=== PATIENT | female | born 1995 | race Caucasian/White ===

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

== ENCOUNTER 2017-02-19 18:13 | Emergency (ER) | payer OTHER ==
[~2017-02-19] VITALS: Ht 162.6 cm; Wt 77.1 kg
[~2017-02-19 18:13] MED LIST changes: +PRED20TA PO; +PROAIR HFA8.5 GM INH
[2017-02-19 18:40] VITALS: BP 118/57
[2017-02-19 19:16] LABS: BILIRUBIN,URINE NEGATIVE (NEG); GLUCOSE,URINE NEGATIVE (NEG); NITRITE,URINE NEGATIVE (NEG); PH,URINE 6.5; PROTEIN,URINE NEGATIVE (NEG-TRACE); UROBILINOGEN,URINE 0.2 mg/dL (0.2 mg/dL)
--- NOTE | 2017-02-19 19:25 | PHYS DOC ---
Past Medical History Past Medical History: Bipolar Additional Past Medical Histor: ADHD Past Surgical History: Tonsillectomy Alcohol Use: Occasionally Drug Use: Marijuana Adult General Chief Complaint Chief Complaint: VAGINAL PROBLEM HPI HPI Patient is a 21 year old female presents emergency department stating that she' s been having dark brown vaginal discharge. She states that she has sexually active that she has approximately 40 sexual partners. 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 Patient denies any abdominal pain nausea vomiting. She does state that she has a little bit discomfort with urination. Denies any back pain or discomfort. Review of Systems Review of Systems Constitutional: Denies fever or chills [] Eyes: Denies change in visual acuity, redness, or eye pain [] HENT: Denies nasal congestion or sore throat [] Respiratory: Denies cough or shortness of breath [] Cardiovascular: No additional information not addressed in HPI [] GI: Denies abdominal pain, nausea, vomiting, bloody stools or diarrhea [] : Denies dysuria or hematuria [] Musculoskeletal: Denies back pain or joint pain [] Integument: Denies rash or skin lesions [] Neurologic: Denies headache, focal weakness or sensory changes [] Endocrine: Denies polyuria or polydipsia [] Current Medications Current Medications Current Medications Medications (Trade) Dose Ordered Sig/María Elena Start Time Stop Time Status Last Admin Dose Admin Azithromycin (Zithromax) 1,000 mg 1X ONCE 02/19/17 19:45 02/19/17 19:46 DC Ceftriaxone Sodium (Rocephin Im) 250 mg 1X ONCE 02/19/17 19:45 02/19/17 19:46 DC Metronidazole (Flagyl) 2,000 mg 1X ONCE 02/19/17 19:45 02/19/17 19:46 DC Allergies Allergies Allergies Coded Allergies Type Severity Reaction Last Updated Verified Latex, Natural Rubber Allergy Unknown hives 08/28/16 Yes Physical Exam Physical Exam Constitutional: Well developed, well nourished, no acute distress, non-toxic appearance. [] HENT: Normocephalic, atraumatic, bilateral external ears normal, oropharynx moist, no oral exudates, nose normal. [] Eyes: PERRLA, EOMI, conjunctiva normal, no discharge. [] Neck: Normal range of motion, no tenderness, supple, no stridor. [] Cardiovascular:Heart rate regular rhythm, no murmur [] Lungs & Thorax: Bilateral breath sounds clear to auscultation [] Abdomen: Bowel sounds normal, soft, no tenderness, no masses, no pulsatile masses. [] Skin: Warm, dry, no erythema, no rash. [] Back: No tenderness Extremities: No tenderness, no cyanosis, no clubbing, ROM intact, no edema. [] Neurologic: Alert and oriented X 3, normal motor function, normal sensory function, no focal deficits noted. [] Psychologic: Affect normal, judgement normal, mood normal. [] Vaginal exam: speculum exam with dark brown vaginal discharge noted. Manual exam with no adnexal tenderness noted, +CMT Current Patient Data Lab Values Laboratory Tests Test 02/19/17 18:48 Urine Collection Type Unknown Urine Color Yellow Urine Clarity Cloudy Urine pH 6.5 Urine Specific Cedar 1.020 Urine Protein Negative mg/dL (NEG-TRACE) Urine Glucose (UA) Negative mg/dL (NEG) Urine Ketones (Stick) Negative mg/dL (NEG) Urine Blood Large (NEG) Urine Nitrite Negative (NEG) Urine Bilirubin Negative (NEG) Urine Urobilinogen Dipstick 0.2 mg/dL (0.2 mg/dL) Urine Leukocyte Esterase Moderate (NEG) Urine RBC 1-2 /HPF (0-2) Urine WBC 5-10 /HPF (0-4) Urine Squamous Epithelial Cells Many /LPF Urine Bacteria Few /HPF (0-FEW) Urine Mucus Slight /LPF Urine Yeast Present /HPF Microbiology 02/19/17 Wet Prep - Final, Complete EKG EKG [] Radiology/Procedures Radiology/Procedures [] Course & Med Decision Making Course & Med Decision Making Pertinent Labs and Imaging studies reviewed. (See chart for details) Patient was positive for urinary tract infection, yeast infection bacterial vaginosis and PID. Patient will be placed on Diflucan, Macrobid, and doxycycline. She was instructed to avoid sexual intercourse for the next 2 weeks that she was also provided treatment for STDs with Rocephin and Zithromax and Flagyl. Patient was instructed to drink plenty of fluids such as water and cranberry juice avoid cranberry juice cocktail carbonate beverages citrus fruits and alcohol seizure considered irritants to the bladder. Patient will be discharged home in stable condition signs symptoms to return back to emergency department been provided. [] Dragon Disclaimer Dragon Disclaimer This electronic medical record was generated, in whole or in part, using a voice recognition dictation system. Departure Departure Impression: Primary Impression: Bacterial vaginosis Additional Impressions: Urinary tract infection Yeast infection PID (acute pelvic inflammatory disease) Disposition: 01 HOME, SELF-CARE Condition: STABLE Referrals: NO PCP (PCP) Patient Instructions: Bacterial Vaginosis, Klej-pj-Somc, Candidal Vulvovaginitis, Qyqk-st-Bxue, Pelvic Inflammatory Disease, Hbxu-fe-Asfo, Urinary Tract Infection, Mtba-mq-Uqrg Additional Instructions: Activity as tolerated. Medications as prescribed. Drink plenty of fluids such as water and cranberry juice. Avoid cranberry juice cocktail, carbonated beverages, citrus fruits and alcohol sees her considered irritants to the bladder. Avoid sexual intercourse for the next 2 weeks. Follow-up to primary care physician in the next 7-10 days. Return back to emergency prior signs symptoms of become worse. Scripts Fluconazole (DIFLUCAN) 150 Mg Tablet 1 TAB PO ONCE, #1 TAB 1 Refill Take 1 tablet today and may repeat in 7 days Prov: PLACIDO ONEILL APRN 02/19/17 Nitrofurantoin Monohyd/M-Cryst (MACROBID 100 MG CAPSULE) 100 Mg Capsule 1 CAP PO BID, #14 CAP Prov: PLACIDO ONEILL APRN 02/19/17 Metronidazole (FLAGYL) 500 Mg Tablet 1 TAB PO BID, #14 TAB Prov: PLACIDO ONEILL APRN 02/19/17 Doxycycline Hyclate (DOXYCYCLINE HYCLATE) 100 Mg Capsule 1 CAP PO BID, #28 CAP Prov: PLACIDO ONEILL APRN 02/19/17 Problem Qualifiers PLACIDO ONEILL APRN February 19, 2017 19:25
[2017-02-19 19:40] LABS: BACTERIA,URINE FEW /HPF (0-FEW); SQUAMOUS EPITHELIAL CELL,UR MANY /LPF; YEAST,URINE PRESENT /HPF
[2017-02-19] MEDS ORDERED: cefTRIAXone IM 250 MG VIAL IM ONE (19:45)
[2017-02-19] MEDS ORDERED: AZITHROMYCIN 250 MG TABLET. PO ONE (19:45)
[2017-02-19] MEDS ORDERED: metroNIDAZOLE 500 MG TABLET PO ONE (19:45)
[2017-02-19] MEDS ORDERED: DOXY100C2 PO (19:53)
[2017-02-19] MEDS ORDERED: METR500T PO (19:53)
[2017-02-19] MEDS ORDERED: FLUC150T PO (19:53)
[2017-02-19] MEDS ORDERED: NITR100C62 PO (19:53)
== END 2017-02-19 20:19 | disposition home or self-care (01) ==
LOC: ER 19:32
DX: B37.3 Candidiasis of vulva and vagina (principal); N39.0 Urinary tract infection, site not specified; N73.9 Female pelvic inflammatory disease, unspecified; F90.9 Attention-deficit hyperactivity disorder, unspecified type; F31.9 Bipolar disorder, unspecified; F12.10 Cannabis abuse, uncomplicated; Z91.040 Latex allergy status
CPT/HCPCS: 81001; 81025; 87491; 87591; 96372; 99284; J0696; Q0111; Q0144

== ENCOUNTER 2017-10-25 11:29 | Emergency (ER) | payer OTHER ==
[2017-10-25 11:42] LABS: URINE HCG POC HCG POSITIVE (Negative)
[2017-10-25 11:56] LABS: BILIRUBIN,URINE NEGATIVE (NEG); COLOR,URINE YELLOW; GLUCOSE,URINE NEGATIVE (NEG); NITRITE,URINE NEGATIVE (NEG); PROTEIN,URINE NEGATIVE (NEG-TRACE); UROBILINOGEN,URINE 0.2 mg/dL (0.2 mg/dL)
[2017-10-25 12:08] LABS: ADD MAN DIFF? NO
[2017-10-25 12:21] LABS: ANION GAP 11 (6-14); BLOOD UREA NITROGEN 8 mg/dL (7-20); BUN/CREATININE RATIO 13 (6-20); CALCIUM 8.9 mg/dL (8.5-10.1); CARBON DIOXIDE 27 mmol/L (21-32); CHLORIDE 105 mmol/L (98-107); CREATININE 0.6 mg/dL (0.6-1.0); GFR 127.5; GLUCOSE 92 mg/dL (70-99); POTASSIUM 3.6 mmol/L (3.5-5.1); SODIUM 143 mmol/L (136-145)
[2017-10-25 12:23] LABS: AMORPHOUS SEDIMENT,UR PRESENT /HPF; BACTERIA,URINE MOD /HPF (0-FEW); CLARITY,URINE CLOUDY; RBC,URINE RARE /HPF (0-2); SQUAMOUS EPITHELIAL CELL,UR FEW /LPF; WBC,URINE OCC /HPF (0-4)
[2017-10-25 12:26] LABS: BASO % 1 % (0-3); EOS # 0.1 x10^3/uL (0.0-0.7); EOS % 1 % (0-3); HEMATOCRIT 39.8 % (36.0-47.0); HEMOGLOBIN 13.3 g/dL (12.0-15.5); LYMPH # 2.5 x10^3/uL (1.0-4.8); LYMPH % 29 % (24-48); MEAN CORPUSCULAR HEMOGLOBIN 29 pg (25-35); MEAN CORPUSCULAR HGB CONC 34 g/dL (31-37); MEAN CORPUSCULAR VOLUME 86 fL (79-100); MONO # 0.6 x10^3/uL (0.0-1.1); MONO % 7 % (0-9); NEUT # 5.3 x10^3uL (1.8-7.7); NEUT % 62 % (31-73); PLATELET COUNT 320 x10^3/uL (140-400); RED BLOOD COUNT 4.61 x10^6/uL (3.50-5.40); WHITE BLOOD COUNT 8.5 x10^3/uL (4.0-11.0)
[2017-10-25 12:27] LABS: ALBUMIN 3.4 g/dL (3.4-5.0); ALBUMIN/GLOBULIN RATIO 0.9 (1.0-1.7); ALK PHOS 84 U/L (46-116); ALT (SGPT) 18 U/L (14-59); AST (SGOT) 13 U/L (15-37); TOTAL BILIRUBIN 0.2 mg/dL (0.2-1.0); TOTAL PROTEIN 7.3 g/dL (6.4-8.2)
[2017-10-25 14:03] LABS: ANTIBODY SCREEN 1 1
== END 2017-10-25 14:13 | disposition home or self-care (01) ==
LOC: ER 11:29
DX: O20.0 Threatened abortion (principal); O23.40 Unspecified infection of urinary tract in pregnancy, unspecified trimester; Z3A.00 Weeks of gestation of pregnancy not specified; F90.9 Attention-deficit hyperactivity disorder, unspecified type; F31.9 Bipolar disorder, unspecified; F12.10 Cannabis abuse, uncomplicated; F14.10 Cocaine abuse, uncomplicated; F15.10 Other stimulant abuse, uncomplicated; Z91.040 Latex allergy status
CPT/HCPCS: 36415; 76801; 80053; 81001; 81025; 84702; 85025; 86850; 86900; 86901; 99285-25; J2791

== ENCOUNTER 2017-12-28 09:38 | Emergency (ER) | payer OTHER ==
[2017-12-28] MEDS: HYDROcodone/APAP 7.5/325MG 1 TAB TABLET PO (10:21)
[2017-12-28 10:23] LABS: ADD MAN DIFF? NO
[2017-12-28 10:30] LABS: BASO % 1 % (0-3); EOS # 0.1 x10^3/uL (0.0-0.7); EOS % 1 % (0-3); HEMATOCRIT 37.5 % (36.0-47.0); HEMOGLOBIN 12.6 g/dL (12.0-15.5); LYMPH # 2.1 x10^3/uL (1.0-4.8); LYMPH % 33 % (24-48); MEAN CORPUSCULAR HEMOGLOBIN 30 pg (25-35); MEAN CORPUSCULAR HGB CONC 34 g/dL (31-37); MEAN CORPUSCULAR VOLUME 88 fL (79-100); MONO # 0.5 x10^3/uL (0.0-1.1); MONO % 8 % (0-9); NEUT # 3.7 x10^3uL (1.8-7.7); NEUT % 58 % (31-73); PLATELET COUNT 193 x10^3/uL (140-400); RED BLOOD COUNT 4.25 x10^6/uL (3.50-5.40); RED CELL DISTRIBUTION WIDTH 15.2 % (11.5-14.5); WHITE BLOOD COUNT 6.5 x10^3/uL (4.0-11.0)
[2017-12-28 10:38] LABS: ANION GAP 8 (6-14); BLOOD UREA NITROGEN 4 mg/dL (7-20); BUN/CREATININE RATIO 8 (6-20); CARBON DIOXIDE 25 mmol/L (21-32); CHLORIDE 104 mmol/L (98-107); CREATININE 0.5 mg/dL (0.6-1.0); GFR 157.3; GLUCOSE 86 mg/dL (70-99); POTASSIUM 3.5 mmol/L (3.5-5.1); SODIUM 137 mmol/L (136-145)
[2017-12-28 10:44] LABS: ALBUMIN/GLOBULIN RATIO 0.7 (1.0-1.7); ALK PHOS 69 U/L (46-116); ALT (SGPT) 16 U/L (14-59); AST (SGOT) 7 U/L (15-37); TOTAL BILIRUBIN 0.2 mg/dL (0.2-1.0); TOTAL PROTEIN 7.2 g/dL (6.4-8.2)
[2017-12-28 12:12] LABS: BILIRUBIN,URINE NEGATIVE (NEG); CLARITY,URINE CLOUDY; COLOR,URINE YELLOW; GLUCOSE,URINE NEGATIVE (NEG); NITRITE,URINE NEGATIVE (NEG); PROTEIN,URINE NEGATIVE (NEG-TRACE); UROBILINOGEN,URINE 0.2 mg/dL (0.2 mg/dL)
[2017-12-28 12:38] LABS: AMORPHOUS SEDIMENT,UR PRESENT /HPF; BACTERIA,URINE 0 /HPF (0-FEW); SQUAMOUS EPITHELIAL CELL,UR MANY /LPF
[2017-12-28] MEDS: ONDANSETRON ODT 4 MG TAB.RAPDIS. PO (12:56)
[2017-12-29 13:25] LABS: CHLAMYDIA PROBE Positive (Negative); GC PROBE Positive (Negative)
== END 2017-12-28 13:38 | disposition home or self-care (01) ==
LOC: ER 09:38
DX: O23.42 Unspecified infection of urinary tract in pregnancy, second trimester (principal); O23.592 Infection of other part of genital tract in pregnancy, second trimester; B96.89 Other specified bacterial agents as the cause of diseases classified elsewhere; Z3A.14 14 weeks gestation of pregnancy; F31.9 Bipolar disorder, unspecified; F90.9 Attention-deficit hyperactivity disorder, unspecified type; F12.10 Cannabis abuse, uncomplicated; F14.10 Cocaine abuse, uncomplicated; F15.10 Other stimulant abuse, uncomplicated; Z91.040 Latex allergy status
CPT/HCPCS: 36415; 76805; 80053; 81001; 84702; 85025; 86850; 86900; 86901; 87086; 87491; 87591; 99285-25; Q0111; Q0162

== ENCOUNTER 2018-03-05 13:33 | Observation (INO) | payer OTHER | END 2018-03-05 16:16 | disposition home or self-care (01) | LOC: 3 SO LND 13:33 | DX: O26.892 Other specified pregnancy related conditions, second trimester (principal); R10.9 Unspecified abdominal pain; R10.2 Pelvic and perineal pain; Z3A.23 23 weeks gestation of pregnancy | CPT/HCPCS: G0378; G0379 ==

== ENCOUNTER 2019-10-29 14:31 | Emergency (ER) | payer OTHER ==
[~2019-10-29] VITALS: Ht 160 cm; Wt 79.4 kg
[~2019-10-29 14:31] MED LIST changes: +ALBU2.5V8 INH; +CEPH-264 PO; +DOXY100C2 PO; +FLUC150T PO; -PROAIR HFA8.5 GM INH
[2019-10-29 14:57] VITALS: BP 99/53
--- NOTE | 2019-10-29 15:07 | PHYS DOC ---
Past Medical History Past Medical History: Bipolar Additional Past Medical Histor: ADHD (TAL RODRIGUEZ APRN) Past Surgical History: Tonsillectomy (TAL RODRIGUEZ APRN) Alcohol Use: Sober Drug Use: Cocaine, Marijuana, Methamphetamine (TAL RODRIGUEZ APRN) Adult General Chief Complaint Chief Complaint: TEST [facility] Patient is a 24 year old female who presents with + test at home. The patient states that she took a test on Monday and then looked at it yesterday and states it was positive. The patient has been having vaginal bleeding that started today. The patient's last menstural period was September 21. Patient denies any other symptoms. Complete ROS were reviewed and found to be within normal limits, except as documented in the HPI (TAL RODRIGUEZ APRN) Allergies Allergies Allergies Coded Allergies Type Severity Reaction Last Updated Verified Latex, Natural Rubber Allergy Unknown hives 08/28/16 Yes (FRAN NICHOLAS MD) Physical Exam Physical Exam Constitutional: Well developed, well nourished, no acute distress, non-toxic appearance. [] HENT: Normocephalic, atraumatic, bilateral external ears normal, oropharynx moist, no oral exudates, nose normal. [] Eyes: PERRLA, EOMI, conjunctiva normal, no discharge. [] Abdomen: Bowel sounds normal, soft, no tenderness, no masses, no pulsatile masses. [] Skin: Warm, dry, no erythema, no rash. [] Neurologic: Alert and oriented X 3, normal motor function, normal sensory function, no focal deficits noted. [] Psychologic: Affect normal, judgement normal, mood normal. [] (TAL RODRIGUEZ APRN) Current Patient Data Vital Signs Vital Signs Date Time Temp Pulse Resp B/P (MAP) Pulse Ox O2 Delivery O2 Flow Rate FiO2 10/29/19 14:57 98.0 82 16 99/53 (68) 94 Room Air 98.0 (FRAN NICHOLAS MD) Lab Values Laboratory Tests Test 10/29/19 14:52 POC Urine HCG, Qualitative Hcg negative (Negative) (FRAN NICHOLAS MD) EKG EKG [] (TAL RODRIGUEZ APRN) Radiology/Procedures Radiology/Procedures [] (TAL RODRIGUEZ APRN) Course & Med Decision Making Course & Med Decision Making Pertinent Labs and Imaging studies reviewed. (See chart for details) Patient has negative test. Will d/c home. (TAL RODRIGUEZ APRN) Course & Med Decision Making Staff Physician Addendum: I was working in the ER during the course of this patient's visit. I was available for consultation as needed, but I was not directly involved in the care of this patient. (FRAN NICHOLAS MD) Dragon Disclaimer Dragon Disclaimer This electronic medical record was generated, in whole or in part, using a voice recognition dictation system. (TAL RODRIGUEZ APRN) Departure Departure Impression: Primary Impression: Negative test Disposition: HOME, SELF-CARE Condition: STABLE Referrals: NO PCP (PCP) Patient Instructions: Tests Additional Instructions: Thank you for visiting [facility]. We appreciate you trusting us with your care. If any additional problems come up don't hesitate to return to visit us. Please follow up with your primary care provider so they can plan additional care if needed and know about the problem that you had. If symptoms worsen come back to the Emergency Department. Any concerning symptoms that start such as chest pain, shortness of air, weakness or numbness on one side of the body, running high fevers or any other concerning symptoms return to the ER. TAL RODRIGUEZ APRN Oct 29, 2019 15:07 FRAN NICHOLAS MD Oct 30, 2019 07:58
== END 2019-10-29 15:17 | disposition home or self-care (01) ==
LOC: ER 14:31
DX: Z32.02 Encounter for pregnancy test, result negative (principal); N93.9 Abnormal uterine and vaginal bleeding, unspecified; F31.9 Bipolar disorder, unspecified; F90.9 Attention-deficit hyperactivity disorder, unspecified type; Z91.040 Latex allergy status
CPT/HCPCS: 81025; 99282

== ENCOUNTER 2019-11-12 18:27 | Emergency (ER) | payer OTHER ==
[~2019-11-12] VITALS: Ht 160 cm; Wt 79.5 kg
[2019-11-12 18:43] VITALS: BP 114/66
[2019-11-12] MEDS ORDERED: IBUPROFEN 400 MG TABLET. PO ONE (19:00)
[2019-11-12 19:35] LABS: INFLUENZA A PATIENT NEGATIVE (NEGATIVE); INFLUENZA B PATIENT NEGATIVE (NEGATIVE)
[2019-11-12] MEDS ORDERED: OSEL75CA PO (19:45)
--- NOTE | 2019-11-12 19:45 | PHYS DOC ---
Past Medical History Past Medical History: Bipolar Additional Past Medical Histor: ADHD (MIRYAM GARRISON APRN) Past Surgical History: Tonsillectomy (MIRYAM GARRISON APRN) Alcohol Use: Sober Drug Use: Cocaine, Marijuana, Methamphetamine (MIRYAM GARRISON APRN) Attending Signature I have participated in the care of this patient and I have reviewed and agree with all pertinent clinical information above including history, exam, and recommendations. (GABRIEL WAGNER MD) Adult General Chief Complaint Chief Complaint: FLU SYMPTOM HPI HPI Patient is a 24 year old male who presents to the emergency department with complaints of flulike symptoms for the last 2 days. Patient complains of a fever, body aches, fatigue, dry cough, nasal congestion, nausea, and headache. Patient denies any influenza immunization rash. Reports that she was recently exposed to her sister and another family member who were diagnosed with influenza B. Patient denies any shortness of breath, wheezing, abdominal pain, vomiting, diarrhea, or back pain. She currently rates her discomfort a 8/10 on the pain scale, she took tylenol at 1530. All other ROS is neg unless otherwise noted in HPI. (MIRYAM GARRISON APRN) Review of Systems Review of Systems See Above (MIRYAM GARRISON APRN) Current Medications Current Medications Current Medications Medications (Trade) Dose Ordered Sig/María Elena Start Time Stop Time Status Last Admin Dose Admin Ibuprofen (Motrin) 800 mg 1X ONCE 11/12/19 19:00 11/12/19 19:02 DC 11/12/19 19:37 800 MG (GABRIEL WAGNER MD) Allergies Allergies Allergies Coded Allergies Type Severity Reaction Last Updated Verified Latex, Natural Rubber Allergy Unknown hives 08/28/16 Yes (GABRIEL WAGNER MD) Physical Exam Physical Exam See Above Constitutional: Well developed, well nourished, no acute distress, ill appearance HENT: Normocephalic, atraumatic, bilateral external ears normal, bilateral TMs normal, posterior pharynx normal oropharynx moist, nose congested with erythema and edema of the nasal turbinates bilaterally Eyes: PERRLA, conjunctiva injected bilaterally, no discharge. [] Neck: Normal range of motion, no stridor. [] Cardiovascular:Heart rate regular rhythm, no murmur [] Lungs & Thorax: Bilateral breath sounds clear to auscultation, Respirations barber n and unlabored, no retractions, no respiratory distress Skin: Warm, dry, no erythema, no rash. [] Back: No tenderness Extremities: No cyanosis, ROM intact Neurologic: Alert and oriented X 3, no focal deficits noted. [] Psychologic: Affect normal, judgement normal, mood normal. (MIRYAM GARRISON APRN) Current Patient Data Vital Signs Vital Signs Date Time Temp Pulse Resp B/P (MAP) Pulse Ox O2 Delivery O2 Flow Rate FiO2 11/12/19 18:43 102.5 119 18 114/66 (82) 95 Room Air 102.5 (GABRIEL WAGNER MD) Lab Values Laboratory Tests Test 11/12/19 19:05 Influenza Type A Antigen Negative (NEGATIVE) Influenza Type B Antigen Negative (NEGATIVE) (GABRIEL WAGNER MD) EKG EKG [] (MIRYAM GARRISON APRN) Radiology/Procedures Radiology/Procedures [] (MIRYAM GARRISON APRN) Course & Med Decision Making Course & Med Decision Making Pertinent Labs and Imaging studies reviewed. (See chart for details) Patient is a 24-year-old female who presented to the emergency room with complaints of flulike symptoms after being exposed influenza B. Rapid flu test was negative. However based off of patient's physical exam and reported history will treat for presumptive influenza. Prescription for Tamiflu written. Patient was encouraged to increase fluids, alternate Tylenol and ibuprofen, may take ove [id number] flu medications as needed. Follow-up with her primary care doctor if symptoms persist, return to the ER symptoms worsen. Patient verbalized an understanding of home care, medications, follow-up, and return to ED instructions and was in agreement with the plan of care. [] (MIRYAM GARRISON APRN) Dragon Disclaimer Dragon Disclaimer This electronic medical record was generated, in whole or in part, using a voice recognition dictation system. (MIRYAM GARRISON APRN) Departure Departure Impression: Primary Impression: Flu-like symptoms Additional Impression: Fever Disposition: 01 HOME, SELF-CARE Condition: STABLE Referrals: NO PCP (PCP) Patient Instructions: Fever, Adult, Vudb-dc-Ogen, Influenza, Adult, Ecgi-ni-Hfme Additional Instructions: Fill the prescription and take as directed. Alternate Tylenol and ibuprofen as needed for fever. Increase clear fluids and rest. Diet as tolerated. Recommend use of [id number] flu medications as needed for relief of your symptoms. Follow up with your primary care doctor if symptoms persist, return to the ER symptoms worsen. Scripts Oseltamivir Phosphate (TAMIFLU) 75 Mg Capsule 1 CAP PO BID for 5 Days, #10 CAP 0 Refills Prov: MIRYAM GARRISON APRN 11/12/19 Problem Qualifiers Additional Impression: Fever Fever type: unspecified Qualified Codes: R50.9 - Fever, unspecified MIRYAM GARRISON APRN Nov 12, 2019 19:45 GABRIEL WAGNER MD Nov 13, 2019 03:57
== END 2019-11-12 20:09 | disposition home or self-care (01) ==
LOC: ER 18:27
DX: R50.9 Fever, unspecified (principal); M79.10 Myalgia, unspecified site; R53.83 Other fatigue; R05 Cough; R09.81 Nasal congestion; R51 Headache; R11.0 Nausea; F31.9 Bipolar disorder, unspecified; F90.9 Attention-deficit hyperactivity disorder, unspecified type; Z91.040 Latex allergy status
CPT/HCPCS: 87804; 99284

== ENCOUNTER 2019-12-05 12:36 | Emergency (ER) | payer OTHER ==
[~2019-12-05] VITALS: Ht 160 cm; Wt 80.9 kg
[~2019-12-05 12:36] MED LIST changes: +OSEL75CA PO
[2019-12-05 13:24] LABS: BILIRUBIN,URINE NEGATIVE (NEG); CLARITY,URINE CLOUDY; COLOR,URINE YELLOW; NITRITE,URINE NEGATIVE (NEG); PROTEIN,URINE NEGATIVE (NEG-TRACE)
--- NOTE | 2019-12-05 13:25 | PHYS DOC ---
Past Medical History Past Medical History: No Pertinent History Additional Past Medical Histor: ADHD Past Surgical History: Tonsillectomy Smoking Status: Never Smoker Alcohol Use: None Drug Use: Cocaine, Marijuana, Methamphetamine Adult General Chief Complaint Chief Complaint: VAGINAL BLEEDING [facility] HPI Patient is a 24 year old female 4 para 3 currently 6 weeks per her statement (LMP 1-09/2020) who presents to the ED today complaining of vaginal bleeding in that began 4 days ago. Patient states notices trace amount of spotting when she wipes herself. Patient states she was seen at [facility] 3 days ago for the same complaint, she states they did blood work as well as an ultrasound, she states her beta HCG was + but her ultrasound they could not find the baby. She is denying any abdominal pain. Denies any nausea vomiting. She reports being given a shot of Rhogham because she has O- blood group. She is also complaining of a rash on her right buttocks for 2 days. Denies any concerns for STDs. Review of Systems Review of Systems Constitutional: Denies fever or chills [] Eyes: Denies change in visual acuity, redness, or eye pain [] HENT: Denies nasal congestion or sore throat [] Respiratory: Denies cough or shortness of breath [] Cardiovascular: No additional information not addressed in HPI [] GI: Reports vaginal bleeding in . Denies abdominal pain, nausea, vomiting, bloody stools or diarrhea [] : Denies dysuria or hematuria [] Musculoskeletal: Denies back pain or joint pain [] Integument: Reports rash on her right buttock Neurologic: Denies headache, focal weakness or sensory changes [] All other systems were reviewed and found to be within normal limits, except as documented in this note. Allergies Allergies Allergies Coded Allergies Type Severity Reaction Last Updated Verified Latex, Natural Rubber Allergy Unknown hives 08/28/16 Yes Physical Exam Physical Exam Constitutional: Well developed, well nourished, no acute distress, non-toxic appearance. [] HENT: Normocephalic, atraumatic, bilateral external ears normal, oropharynx moist, no oral exudates, nose normal. [] Eyes: PERRLA, EOMI, conjunctiva normal, no discharge. [] Neck: Normal range of motion, no tenderness, supple, no stridor. [] Cardiovascular:Heart rate regular rhythm, no murmur [] Lungs & Thorax: Bilateral breath sounds clear to auscultation [] Abdomen: Bowel sounds normal, soft, no tenderness, no masses, no pulsatile masses. [] Pelvic exam External pelvic appears normal, cervix is visualized, closed, no CMT, no adnexal tenderness, no bleeding noted, trace amount of white vaginal discharge noted. Skin: Warm, dry, right buttock with classic group of vesicles consistent of herpes. Back: No tenderness, no CVA tenderness. [] Extremities: No tenderness, no cyanosis, no clubbing, ROM intact, no edema. [] Neurologic: Alert and oriented X 3, normal motor function, normal sensory function, no focal deficits noted. [] Psychologic: Affect normal, judgement normal, mood normal. [] Current Patient Data Vital Signs Vital Signs Date Time Temp Pulse Resp B/P (MAP) Pulse Ox O2 Delivery O2 Flow Rate FiO2 12/05/19 12:54 98.7 74 20 110/65 (80) 100 Room Air 98.7 Lab Values Laboratory Tests Test 12/05/19 12:47 12/05/19 12:48 12/05/19 14:05 12/05/19 14:10 POC Urine HCG, Qualitative Hcg positive (Negative) Urine Collection Type Unknown Urine Color Yellow Urine Clarity Cloudy Urine pH 7.0 Urine Specific [place] 1.020 Urine Protein Negative mg/dL (NEG-TRACE) Urine Glucose (UA) Negative mg/dL (NEG) Urine Ketones (Stick) Negative mg/dL (NEG) Urine Blood Negative (NEG) Urine Nitrite Negative (NEG) Urine Bilirubin Negative (NEG) Urine Urobilinogen Dipstick 1.0 mg/dL (0.2 mg/dL) Urine Leukocyte Esterase Large (NEG) Urine RBC 0 /HPF (0-2) Urine WBC 11-20 /HPF (0-4) Urine Squamous Epithelial Cells Many /LPF Urine Transitional Epithelial Cells Few /LPF Urine Amorphous Sediment Present /HPF Urine Bacteria Few /HPF (0-FEW) Urine Mucus Slight /LPF Urine Opiates Screen Neg (NEG) Urine Methadone Screen Neg (NEG) Urine Barbiturates Neg (NEG) Urine Phencyclidine Screen Neg (NEG) Urine Amphetamine/Methamphetamine Neg (NEG) Urine Benzodiazepines Screen Neg (NEG) Urine Cocaine Screen Neg (NEG) Urine Cannabinoids Screen Neg (NEG) Urine Ethyl Alcohol Neg (NEG) Maternal Serum HCG Beta Subunit 367 mIU/mL (0-5) H Sodium Level 138 mmol/L (136-145) Potassium Level 3.7 mmol/L (3.5-5.1) Chloride Level 105 mmol/L (98-107) Carbon Dioxide Level 27 mmol/L (21-32) Anion Gap 6 (6-14) Blood Urea Nitrogen 10 mg/dL (7-20) Creatinine 0.6 mg/dL (0.6-1.0) Estimated GFR (Cockcroft-Gault) 125.0 BUN/Creatinine Ratio 17 (6-20) Glucose Level 100 mg/dL (70-99) H Calcium Level 9.1 mg/dL (8.5-10.1) Total Bilirubin 0.2 mg/dL (0.2-1.0) Aspartate Amino Transferase (AST) 14 U/L (15-37) L Alanine Aminotransferase (ALT) 26 U/L (14-59) Alkaline Phosphatase 89 U/L (46-116) Total Protein 7.1 g/dL (6.4-8.2) Albumin 3.3 g/dL (3.4-5.0) L Albumin/Globulin Ratio 0.9 (1.0-1.7) L White Blood Count 5.6 x10^3/uL (4.0-11.0) Red Blood Count 4.21 x10^6/uL (3.50-5.40) Hemoglobin 10.8 g/dL (12.0-15.5) L Hematocrit 33.0 % (36.0-47.0) L Mean Corpuscular Volume 78 fL (79-100) L Mean Corpuscular Hemoglobin 26 pg (25-35) Mean Corpuscular Hemoglobin Concent 33 g/dL (31-37) Red Cell Distribution Width 16.9 % (11.5-14.5) H Platelet Count 285 x10^3/uL (140-400) Neutrophils (%) (Auto) 51 % (31-73) Lymphocytes (%) (Auto) 36 % (24-48) Monocytes (%) (Auto) 11 % (0-9) H Eosinophils (%) (Auto) 2 % (0-3) Basophils (%) (Auto) 1 % (0-3) Neutrophils # (Auto) 2.8 x10^3/uL (1.8-7.7) Lymphocytes # (Auto) 2.0 x10^3/uL (1.0-4.8) Monocytes # (Auto) 0.6 x10^3/uL (0.0-1.1) Eosinophils # (Auto) 0.1 x10^3/uL (0.0-0.7) Basophils # (Auto) 0.0 x10^3/uL (0.0-0.2) Laboratory Tests 12/05/19 14:10 Laboratory Tests 12/05/19 14:05 Microbiology 12/05/19 Wet Prep - Final, Complete EKG EKG [] Radiology/Procedures Radiology/Procedures []PROCEDURE: OB <14 WKS W/TV OB <14 WKS W/TV History: Vaginal bleeding. Comparison: December 28, 2017. Technique: Grayscale and color Doppler imaging of the pelvis was performed using transabdominal and transvaginal technique. Findings: The uterus measures 7.8 x 5.8 x 4.9 cm in length. No evidence of intrauterine gestational sac. Thickened endometrium measures up to to 2.0 cm. Right ovary measures 4.0 x 3.1 x 2.3 cm. Right ovarian dominant follicle with internal echogenicity measures 2.0 x 1.9 x 1.6 cm, new compared to prior. Left ovary measures 2.5 x 1.7 x 1.5 cm and is unremarkable. No adnexal masses are seen. No pelvic free fluid. IMPRESSION: 1. No evidence of intrauterine gestational sac, may relate to early . Recommend short-term ultrasound follow-up and and serial beta hCG testing. 2. Dominant right complicated ovarian follicle. 3. Small simple pelvic free fluid, likely physiologic. Electronically signed by: Jake Kan DO (12/05/2019 2:10 PM) [email or web address] DICTATED and SIGNED BY: JAKE KAN DO DATE: 12/05/19 1410 Course & Med Decision Making Course & Med Decision Making Pertinent Labs and Imaging studies reviewed. (See chart for details) This is a 24-year-old female patient presenting to the ED today complaining of vaginal bleeding in for 4 days and lesions on her right buttock for 2 days. See HPI. Patient was seen at [place] a couple days ago she also reports receiving Rhogham. Positive urine hCG, beta-hCG 367. Hemoglobin 10.8, hematocrit 33.0. Wet prep negative for any acute findings. Blood group O-. Urine analysis is noted for UTI, discharged on cephalexin. OB ultrasound unable to find a gestational sac though this is an early . Serial beta hcg recommended. Also noted for dominant complicated right ovarian follicle and small amount of simple pelvic free fluid likely physiologic. Patient was discharged to home. Follow-up with [facility] in 2 days for beta hCG. Pelvic rest recommended. Given prescription for acyclovir for shingles on her buttock 20 Dragon Disclaimer Dragon Disclaimer This electronic medical record was generated, in whole or in part, using a voice recognition dictation system. Departure Departure Impression: Primary Impression: Vaginal bleeding during Additional Impressions: Urinary tract infection Shingles Disposition: HOME, SELF-CARE Condition: STABLE Referrals: NO PCP (PCP) AGNES COOK Jr, MD follow up with your OBGYN in 2 days Patient Instructions: Shingles, [id number], Threatened Miscarriage, [id number], Urinary Tract Infection Additional Instructions: You were evaluated in the emergency room for vaginal bleeding in . Your beta hCG was 367. Your OB ultrasound could not find an intrauterine this is a very early . We recommend you follow-up with an [facility] in 2 days for repeat labs, we recommended you maintain bedrest, this includes no strenuous activities, no sex. You also have urinary tract infection, we' put you on antibiotics, ensure you complete them. Scripts Acyclovir (ACYCLOVIR) 800 Mg Tablet 1 TAB PO 5XDAY, #50 TAB Prov: MOLLY SILVESTRE APRN 12/05/19 Cephalexin (CEPHALEXIN) 500 Mg Tablet 1 TAB PO BID, #14 TAB Prov: MOLLY SILVESTRE APRN 12/05/19 Problem Qualifiers Additional Impressions: Urinary tract infection Urinary tract infection type: site unspecified Hematuria presence: without hematuria Qualified Codes: N39.0 - Urinary tract infection, site not specified Shingles Herpes zoster complications: without complications Qualified Codes: B02.9 - Zoster without complications MOLLY SILVESTRE APRN Dec 05, 2019 13:25
[2019-12-05 13:30] LABS: BARBITURATES NEG (NEG); BENZODIAZEPINES NEG (NEG); CANNABINOIDS NEG (NEG); COCAINE NEG (NEG); METHADONE NEG (NEG); OPIATES NEG (NEG); PHENCYCLIDINE NEG (NEG)
[2019-12-05 13:32] LABS: AMPHETAMINE/METHAMPHETAMINE NEG (NEG)
[2019-12-05 13:47] LABS: AMORPHOUS SEDIMENT,UR PRESENT /HPF; SQUAMOUS EPITHELIAL CELL,UR MANY /LPF
[2019-12-05 13:48] LABS: BACTERIA,URINE FEW /HPF (0-FEW); RBC,URINE 0 /HPF (0-2)
--- NOTE | 2019-12-05 14:13 | RAD ---
OB <14 WKS W/TV History: Vaginal bleeding. Comparison: December 28, 2017. Technique: Grayscale and color Doppler imaging of the pelvis was performed using transabdominal and transvaginal technique. Findings: The uterus measures 7.8 x 5.8 x 4.9 cm in length. No evidence of intrauterine gestational sac. Thickened endometrium measures up to to 2.0 cm. Right ovary measures 4.0 x 3.1 x 2.3 cm. Right ovarian dominant follicle with internal echogenicity measures 2.0 x 1.9 x 1.6 cm, new compared to prior. Left ovary measures 2.5 x 1.7 x 1.5 cm and is unremarkable. No adnexal masses are seen. No pelvic free fluid. IMPRESSION: 1. No evidence of intrauterine gestational sac, may relate to early . Recommend short-term ultrasound follow-up and and serial beta hCG testing. 2. Dominant right complicated ovarian follicle. 3. Small simple pelvic free fluid, likely physiologic. Electronically signed by: Bola Shaw DO (12/05/2019 2:10 PM) [email or web address]
[2019-12-05 14:24] LABS: BASO % 1 % (0-3); EOS # 0.1 x10^3/uL (0.0-0.7); EOS % 2 % (0-3); HEMOGLOBIN 10.8 g/dL (12.0-15.5); LYMPH % 36 % (24-48); MEAN CORPUSCULAR HEMOGLOBIN 26 pg (25-35); MEAN CORPUSCULAR HGB CONC 33 g/dL (31-37); MEAN CORPUSCULAR VOLUME 78 fL (79-100); MONO # 0.6 x10^3/uL (0.0-1.1); MONO % 11 % (0-9); NEUT # 2.8 x10^3/uL (1.8-7.7); NEUT % 51 % (31-73); PLATELET COUNT 285 x10^3/uL (140-400); RED BLOOD COUNT 4.21 x10^6/uL (3.50-5.40); RED CELL DISTRIBUTION WIDTH 16.9 % (11.5-14.5); WHITE BLOOD COUNT 5.6 x10^3/uL (4.0-11.0)
[2019-12-05 14:32] LABS: CALCIUM 9.1 mg/dL (8.5-10.1); CREATININE 0.6 mg/dL (0.6-1.0); POTASSIUM 3.7 mmol/L (3.5-5.1)
[2019-12-05 14:38] LABS: ALBUMIN 3.3 g/dL (3.4-5.0); ALBUMIN/GLOBULIN RATIO 0.9 (1.0-1.7); TOTAL BILIRUBIN 0.2 mg/dL (0.2-1.0); TOTAL PROTEIN 7.1 g/dL (6.4-8.2)
[2019-12-05] MEDS ORDERED: CEPH500T PO (15:19)
[2019-12-05] MEDS ORDERED: ACYC800T PO (15:49)
[2019-12-05 15:57] VITALS: BP 130/81
[2019-12-06 19:09] LABS: GC PROBE Positive (Negative)
== END 2019-12-05 16:00 | disposition home or self-care (01) ==
LOC: ER 12:36
DX: O46.91 Antepartum hemorrhage, unspecified, first trimester (principal); O23.41 Unspecified infection of urinary tract in pregnancy, first trimester; O99.711 Diseases of the skin and subcutaneous tissue complicating pregnancy, first trimester; B02.9 Zoster without complications; Z3A.01 Less than 8 weeks gestation of pregnancy; Z91.040 Latex allergy status
CPT/HCPCS: 36415; 76801; 76817; 80053; 80307; 81001; 81025; 84702; 85025; 86850; 86900; 86901; 87086; 87491; 87591; 99284; Q0111

== ENCOUNTER → 2020-03-19 | Outpatient (CLI) | payer OTHER ==
[~2020-03-19] MED LIST changes: +ACYC800T PO; +CEPH500T PO
--- NOTE | 2020-03-19 15:55 | RAD ---
Exam: Ultrasound OB greater than 14 weeks Indication: Technique: Real-time grayscale and color Doppler images of the pelvis were obtained by the department escrow manager. Comparisons: 12/05/2019 FINDINGS: uterus with a single live intrauterine gestation in breech position with heart rate measured at 157 bpm measurements as follows: BPD: 5.6 cm corresponding to 19 weeks 5 days Head circumference: 15.3 cm corresponding to 18 weeks 2 days Abdominal circumference: 15.4 cm corresponding to 20 weeks 4 days Femur length: 3.1 cm corresponding to 19 weeks 3 days Estimated weight 319 g Structures not well-visualized: Nose/lips, upper extremities Placenta is posterior and appears normal. Cervix measures 4 cm in length. IMPRESSION: 1. Single live intrauterine gestation measuring 19 weeks 4 days by current ultrasound. Recommend correlation with LMP or prior dating ultrasound if available. 2. Visualized structures appear normal with limitations as described above. Electronically signed by: Jazmine Perez MD (03/19/2020 3:52 PM) [id number]
== END | disposition home or self-care (01) ==
LOC: US 13:09
PROVIDERS: ATTEND Obstetrics & Gynecology
DX: O26.842 Uterine size-date discrepancy, second trimester (principal); Z3A.19 19 weeks gestation of pregnancy
CPT/HCPCS: 76805

== ENCOUNTER 2020-03-30 17:16 | Observation (INO) | payer OTHER ==
[2020-03-30] MEDS ORDERED: IV RINGERS,LACTATED 1000ML 1,000 ML IV SCH (17:19)
[2020-03-30] MEDS ORDERED: MAG HYDROX/ALUMINUM HYD/SIMETH 30 ML ORAL.SUSP PO PRN (17:30)
[2020-03-30] MEDS ORDERED: ONDANSETRON PF 4 MG/2 ML VIAL. IVP PRN (17:30)
[2020-03-30] MEDS ORDERED: ACETAMINOPHEN 325 MG TABLET. PO PRN (17:30)
[2020-03-30 17:44] LABS: BILIRUBIN,URINE NEGATIVE (NEG); CLARITY,URINE CLOUDY; COLOR,URINE YELLOW; NITRITE,URINE NEGATIVE (NEG); PROTEIN,URINE NEGATIVE (NEG-TRACE); UROBILINOGEN,URINE 0.2 mg/dL (0.2 mg/dL)
[2020-03-30 17:51] LABS: BARBITURATES NEG (NEG); BENZODIAZEPINES NEG (NEG); CANNABINOIDS NEG (NEG); COCAINE NEG (NEG); METHADONE NEG (NEG); OPIATES NEG (NEG); PHENCYCLIDINE NEG (NEG)
[2020-03-30 17:52] LABS: AMPHETAMINE/METHAMPHETAMINE NEG (NEG)
[2020-03-30 17:54] LABS: AMORPHOUS SEDIMENT,UR PRESENT /HPF; BACTERIA,URINE FEW /HPF (0-FEW); RBC,URINE OCC /HPF (0-2); SQUAMOUS EPITHELIAL CELL,UR FEW /LPF; WBC,URINE OCC /HPF (0-4)
== END 2020-03-30 18:15 | disposition home or self-care (01) ==
LOC: 3 SO LND 17:16
PROVIDERS: ADMIT Obstetrics & Gynecology; ATTEND Obstetrics & Gynecology
DX: O26.892 Other specified pregnancy related conditions, second trimester (principal); Z3A.19 19 weeks gestation of pregnancy
CPT/HCPCS: 80307; 81001; 87086; G0378; G0379

== ENCOUNTER 2020-04-06 13:43 | Emergency (ER) | payer OTHER ==
[~2020-04-06] VITALS: Ht 160 cm; Wt 85.0 kg
[2020-04-06 13:50] VITALS: BP 113/91
--- NOTE | 2020-04-06 14:59 | PHYS DOC ---
Past Medical History Past Medical History: Other Additional Past Medical Histor: ADHD Past Surgical History: Tonsillectomy Smoking Status: Never Smoker Alcohol Use: None Drug Use: Cocaine, Marijuana, Methamphetamine General Adult EDM: Chief Complaint: BACK PAIN OR INJURY HPI: HPI: Patient is a 24 year old female who presents with 22 weeks with right back pain that radiates around to the abdomen with nausea and vomiting. Patient is very tearful. There is no radiation down the back of her leg. She states that she just urinated on herself. Nurse states there was no wetness seen on her pants. Patient rating her pain a 10 out of 10. Review of Systems: Review of Systems: GI: Right abdominal pain, nausea, vomiting, denies bloody stools or diarrhea. [] Musculoskeletal: Low back pain or joint pain. [] Heart Score: Risk Factors: Risk Factors: DM, Current or recent (<one month) smoker, HTN, HLP, family history of CAD, obesity. Risk Scores: Score 0 - 3: 2.5% MACE over next 6 weeks - Discharge Home Score 4 - 6: 20.3% MACE over next 6 weeks - Admit for Clinical Observation Score 7 - 10: 72.7% MACE over next 6 weeks - Early Invasive Strategies Current Medications: Current Medications Medications (Trade) Dose Ordered Sig/María Elena Start Time Stop Time Status Last Admin Dose Admin Acetaminophen/ Hydrocodone Bitart (Lortab 5/325) 1 tab 1X ONCE 04/06/20 15:00 04/06/20 15:01 UNV Allergies: Allergies: Allergies Coded Allergies Type Severity Reaction Last Updated Verified Latex, Natural Rubber Allergy Unknown hives 08/28/16 Yes Physical Exam: PE: Constitutional: Well developed, well nourished, no acute distress, non-toxic appearance. [] HENT: Normocephalic, atraumatic, bilateral external ears normal, oropharynx moist, no oral exudates, nose normal. [] Eyes: PERRLA, EOMI, conjunctiva normal, no discharge. [] Neck: Normal range of motion, no tenderness, supple, no stridor. [] Cardiovascular:Heart rate regular rhythm, no murmur [] Lungs & Thorax: Bilateral breath sounds clear to auscultation [] Abdomen: Bowel sounds normal, soft, no tenderness, no masses, no pulsatile masses. [] Skin: Warm, dry, no erythema, no rash. [] Back: No tenderness, no CVA tenderness. [] Extremities: No tenderness, no cyanosis, no clubbing, ROM intact, no edema. [] Neurologic: Alert and oriented X 3, normal motor function, normal sensory function, no focal deficits noted. [] Psychologic: Affect normal, judgement normal, mood normal. [] Current Patient Data: Vital Signs: Vital Signs Date Time Temp Pulse Resp B/P (MAP) Pulse Ox O2 Delivery O2 Flow Rate FiO2 04/06/20 13:50 98.6 77 18 113/91 (98) 98 Room Air 98.6 EKG: EKG: [] Radiology/Procedures: Radiology/Procedures: [] Course & Med Decision Making: Course & Med Decision Making Pertinent Labs and Imaging studies reviewed. (See chart for details) After speaking to this patient it is decided that she needs to go up to the OB floor to make sure she is not in labor. Her doctor is Dr. Ratliff. Her due date is August 04. Patient will go up to the OB floor at this time. [] Dragon Disclaimer: Dragon Disclaimer: This electronic medical record was generated, in whole or in part, using a voice recognition dictation system. Departure Departure Impression: Primary Impression: Abdominal pain Qualified Codes: R10.31 - Right lower quadrant pain Disposition: 01 HOME, SELF-CARE Condition: STABLE Referrals: NO PCP (PCP) Justicifation of Admission Dx: Justifications for Admission: Justification of Admission Dx: N/A PLACIDO MCCOY APRN Apr 06, 2020 14:59
[2020-04-06] MEDS ORDERED: HYDROcodone/APAP 5/325MG 1 TAB TABLET PO ONE (15:00)
== END 2020-04-06 15:04 | disposition home or self-care (01) ==
LOC: ER 13:43
DX: O26.892 Other specified pregnancy related conditions, second trimester (principal); R10.31 Right lower quadrant pain; R11.2 Nausea with vomiting, unspecified; M54.5 Low back pain; Z91.040 Latex allergy status; Z3A.22 22 weeks gestation of pregnancy
CPT/HCPCS: 99281

== ENCOUNTER 2020-04-06 15:01 | Observation (INO) | payer OTHER ==
[2020-04-06 13:50] VITALS: BP 113/91
[2020-04-06] MEDS ORDERED: IV RINGERS,LACTATED 1000ML 1,000 ML IV PRN (15:30)
[2020-04-06 15:49] LABS: BILIRUBIN,URINE NEGATIVE (NEG); CLARITY,URINE CLOUDY; COLOR,URINE YELLOW; NITRITE,URINE NEGATIVE (NEG); PROTEIN,URINE 100 mg/dL (NEG-TRACE); UROBILINOGEN,URINE 0.2 mg/dL (0.2 mg/dL)
[2020-04-06 16:06] LABS: SQUAMOUS EPITHELIAL CELL,UR MANY /LPF
[2020-04-06 16:07] LABS: BACTERIA,URINE MODERATE /HPF (0-FEW); RBC,URINE >40 /HPF (0-2)
[2020-04-06] MEDS ORDERED: CYCLOBENZAPRINE 10 MG TABLET. PO ONE (16:30)
[2020-04-06] MEDS ORDERED: fentaNYL PF VIAL 100 MCG/2 ML VIAL IVP PRN (17:00)
[2020-04-06] MEDS ORDERED: ONDANSETRON PF 4 MG/2 ML VIAL. IVP PRN (17:00)
[2020-04-06 17:29] LABS: BASO % 0 % (0-3); EOS # 0.1 x10^3/uL (0.0-0.7); EOS % 1 % (0-3); HEMATOCRIT 28.7 % (36.0-47.0); HEMOGLOBIN 9.5 g/dL (12.0-15.5); LYMPH # 1.8 x10^3/uL (1.0-4.8); LYMPH % 19 % (24-48); MEAN CORPUSCULAR HEMOGLOBIN 27 pg (25-35); MEAN CORPUSCULAR HGB CONC 33 g/dL (31-37); MEAN CORPUSCULAR VOLUME 80 fL (79-100); MONO # 0.7 x10^3/uL (0.0-1.1); MONO % 7 % (0-9); NEUT # 6.8 x10^3/uL (1.8-7.7); NEUT % 73 % (31-73); PLATELET COUNT 220 x10^3/uL (140-400); RED BLOOD COUNT 3.59 x10^6/uL (3.50-5.40); RED CELL DISTRIBUTION WIDTH 17.1 % (11.5-14.5); WHITE BLOOD COUNT 9.3 x10^3/uL (4.0-11.0)
[2020-04-06 17:35] LABS: CALCIUM 8.1 mg/dL (8.5-10.1); CREATININE 0.6 mg/dL (0.6-1.0); POTASSIUM 3.6 mmol/L (3.5-5.1)
[2020-04-06 17:41] LABS: ALBUMIN 2.8 g/dL (3.4-5.0); ALBUMIN/GLOBULIN RATIO 0.6 (1.0-1.7); TOTAL BILIRUBIN 0.2 mg/dL (0.2-1.0); TOTAL PROTEIN 7.2 g/dL (6.4-8.2)
--- NOTE | 2020-04-06 17:52 | RAD ---
Exam: Ultrasound kidneys Indication: Rule out appendicitis, torsion ovarian cyst. Abdominal pain Technique: Real-time grayscale and color Doppler images of the kidneys were obtained by the department instructor industrial design. Comparisons: None FINDINGS: Right kidney measures 12.7 cm in length. Severe right-sided hydronephrosis. Right ovary measures 2.0 x 2.1 x 1.9 cm. Left kidney measures 10.9 cm in length. No hydronephrosis. Within the uterus there is a live intrauterine gestation with heart rate measured at 123 bpm. Bladder is decompressed. Appendix is not visualized. IMPRESSION: 1. Severe right-sided hydronephrosis. Normal sonographic appearance of the left kidney. 2. Appendix not visualized. Nonvisualization of the appendix does not exclude acute appendicitis. Electronically signed by: Jazmine Perez MD (04/06/2020 5:49 PM) [id number]
[2020-04-06] MEDS ORDERED: cefTRIAXone IV Push 1 GM VIAL. IVP ONE (18:15)
--- NOTE | 2020-04-06 18:26 | PDOC1 ---
OB - History Hx of Present Care: Good Care Ultrasounds: Normal mid trimester US Obstetrical Complications: None Medical Complications: Other (severe hydronephrosis) Past Family/Social History * Past Medical, Surgical, Family and Obstetric Histories reviewed from chart. Rubella: Immune RPR/VDRL: Negative GBS Status: Unknown HBsAG: Negative OB - Chief Complaint & HPI Date of Admission: Date of Admission: Apr 06, 2020 at 15:01 Chief Complaint/History : 4 Para: 3 EGA: 22 Reason for admission: other (Severe Hydronephrosis) Admission Nurse Assessment Rev: Yes OB - Admission Exam Physical Exam Vitals: VS - Last 72 Hours, by Label Date Time Temp Pulse Resp B/P (MAP) Pulse Ox O2 Delivery O2 Flow Rate FiO2 04/06/20 17:25 20 Room Air HEENT: Normal Heart: Regular Rate Lungs: Clear Abdomen: Gravid, Soft, Tender, Ultrasound impression (severe hydronephrosis) Reflexes: Normal Cervical Dilatation: None Effacement: 0% Station: Ballotable Membranes: Intact Heart Rate: Normal Accelerations: Accelerations Present Decelerations: No decelerations Contractions on Admission: None Text A: 22 wks IUP Severe Right Hydronephrosis P: Transfer to for Urology services for severe hydronephrosis affecting . AGNES COOK Jr, MD Apr 06, 2020 18:26
[2020-04-06] MEDS ORDERED: IV NORMAL SALINE 1000ML BAG 1,000 ML IV PRN (18:30)
[2020-04-06] MEDS ORDERED: BUTORPHANOL 2 MG/ML VIAL. ONE (18:33)
[2020-04-06] MEDS ORDERED: BUTORPHANOL 2 MG/ML VIAL. IV ONE (18:45)
--- NOTE | 2020-04-07 07:52 | NUR ---
Pt. transferred per EMS to [facility]. All transfer paperwork and consents completed and signed. Consent to transfer inadvertently sent to [facility] with patients chart.
== END 2020-04-06 19:20 | disposition short-term general hospital (02) ==
LOC: 3 SO LND 15:01
PROVIDERS: ADMIT Obstetrics & Gynecology; ATTEND Obstetrics & Gynecology
DX: O26.892 Other specified pregnancy related conditions, second trimester (principal); N13.30 Unspecified hydronephrosis; Z3A.22 22 weeks gestation of pregnancy
CPT/HCPCS: 36415; 76856; 80053; 81001; 82150; 83690; 85025; 87086; 96374; 96375; G0378; G0379; J0595; J0696; J2405; J3010; J7030; J7120

== ENCOUNTER → 2020-05-12 | Outpatient (CLI) | payer OTHER ==
[2020-05-12 09:38] LABS: BASO % 1 % (0-3); EOS # 0.1 x10^3/uL (0.0-0.7); EOS % 1 % (0-3); LYMPH # 1.8 x10^3/uL (1.0-4.8); LYMPH % 22 % (24-48); MEAN CORPUSCULAR HEMOGLOBIN 27 pg (25-35); MEAN CORPUSCULAR HGB CONC 33 g/dL (31-37); MEAN CORPUSCULAR VOLUME 81 fL (79-100); MONO # 0.7 x10^3/uL (0.0-1.1); MONO % 8 % (0-9); NEUT # 5.5 x10^3/uL (1.8-7.7); NEUT % 68 % (31-73); PLATELET COUNT 210 x10^3/uL (140-400); RED BLOOD COUNT 3.68 x10^6/uL (3.50-5.40); RED CELL DISTRIBUTION WIDTH 17.6 % (11.5-14.5); WHITE BLOOD COUNT 8.1 x10^3/uL (4.0-11.0)
== END | disposition home or self-care (01) ==
LOC: LAB 09:05
PROVIDERS: ATTEND Obstetrics & Gynecology
DX: O09.92 Supervision of high risk pregnancy, unspecified, second trimester (principal); Z3A.27 27 weeks gestation of pregnancy
CPT/HCPCS: 36415; 82950; 85025; 86850; 86900; 86901; J2791

== ENCOUNTER 2020-07-06 15:25 | Observation (INO) | payer OTHER ==
[2020-07-06] MEDS ORDERED: IV RINGERS,LACTATED 1000ML 1,000 ML IV SCH (15:27)
[2020-07-06 16:23] LABS: BILIRUBIN,URINE NEGATIVE (NEG); CLARITY,URINE CLEAR; COLOR,URINE YELLOW; NITRITE,URINE NEGATIVE (NEG); PH,URINE 6.5 (<5.0-8.0); PROTEIN,URINE NEGATIVE (NEG-TRACE); UROBILINOGEN,URINE 0.2 mg/dL (0.2 mg/dL)
[2020-07-06 16:29] LABS: BACTERIA,URINE MANY /HPF (0-FEW); SQUAMOUS EPITHELIAL CELL,UR OCC /LPF; WBC,URINE TNTC /HPF (0-4)
== END 2020-07-06 17:33 | disposition home or self-care (01) ==
LOC: 3 SO LND 15:25
PROVIDERS: ADMIT Obstetrics & Gynecology; ATTEND Obstetrics & Gynecology
DX: O36.8130 Decreased fetal movements, third trimester, not applicable or unspecified (principal); Z3A.35 35 weeks gestation of pregnancy
CPT/HCPCS: 81001; 87086; G0378; G0379

== ENCOUNTER 2020-07-16 16:52 | Observation (INO) | payer OTHER ==
[2020-07-16] MEDS ORDERED: IV RINGERS,LACTATED 1000ML 1,000 ML IV PRN (17:15)
[2020-07-16 17:51] LABS: BILIRUBIN,URINE NEGATIVE (NEG); CLARITY,URINE CLEAR; COLOR,URINE YELLOW; NITRITE,URINE NEGATIVE (NEG); PROTEIN,URINE NEGATIVE (NEG-TRACE); UROBILINOGEN,URINE 0.2 mg/dL (0.2 mg/dL)
[2020-07-16 17:57] LABS: AMNIO PT NEGATIVE
[2020-07-16 18:00] LABS: BACTERIA,URINE FEW /HPF (0-FEW); RBC,URINE 0 /HPF (0-2); SQUAMOUS EPITHELIAL CELL,UR FEW /LPF
== END 2020-07-16 18:45 | disposition home or self-care (01) ==
LOC: 3 SO LND 16:52
PROVIDERS: ADMIT Obstetrics & Gynecology; ATTEND Obstetrics & Gynecology
DX: O42.913 Preterm premature rupture of membranes, unspecified as to length of time between rupture and onset of labor, third trimester (principal); Z3A.36 36 weeks gestation of pregnancy
CPT/HCPCS: 36415; 81001; 84112; 87086; G0378; G0379

== ENCOUNTER 2020-07-28 14:54 | Inpatient (IN) | payer OTHER ==
[~2020-07-28] VITALS: Ht 160 cm; Wt 99.8 kg
[2020-07-28] MEDS ORDERED: TERBUTALINE 1 MG/ML VIAL. SQ PRN (15:00)
[2020-07-28] MEDS ORDERED: 0.9 % SODIUM CHLORIDE 10 ML DISP.SYRIN. IV PRN (15:00)
[2020-07-28] MEDS ORDERED: ONDANSETRON PF 4 MG/2 ML VIAL. IVP PRN (15:00)
[2020-07-28] MEDS ORDERED: IBUPROFEN 400 MG TABLET. PO PRN (15:00)
[2020-07-28] MEDS ORDERED: LIDOCAINE 1% PF 30 ML VIAL. INJ PRN (15:00)
[2020-07-28] MEDS ORDERED: fentaNYL PF VIAL 100 MCG/2 ML VIAL IVP PRN (15:00)
[2020-07-28] MEDS ORDERED: MAG HYDROX/ALUMINUM HYD/SIMETH 30 ML ORAL.SUSP PO PRN (15:00)
[2020-07-28] MEDS ORDERED: CITRIC ACID/SODIUM CITRATE 30 ML SOLUTION. PO PRN (15:00)
[2020-07-28] MEDS ORDERED: OXYTOCIN 30 UNIT/500 ML PREMIX 500 ML IV PRN ×2 (15:00)
[2020-07-28 15:37] LABS: BILIRUBIN,URINE NEGATIVE (NEG); CLARITY,URINE CLEAR; COLOR,URINE YELLOW; NITRITE,URINE NEGATIVE (NEG); PROTEIN,URINE NEGATIVE (NEG-TRACE); UROBILINOGEN,URINE 0.2 mg/dL (0.2 mg/dL)
[2020-07-28 15:41] LABS: CREATININE,RANDOM URINE 61.2 mg/dL (Not Establ.)
[2020-07-28 16:02] LABS: BASO # 0.1 x10^3/uL (0.0-0.2); BASO % 1 % (0-3); EOS # 0.1 x10^3/uL (0.0-0.7); EOS % 1 % (0-3); HEMATOCRIT 26.9 % (36.0-47.0); HEMOGLOBIN 8.7 g/dL (12.0-15.5); LYMPH # 1.9 x10^3/uL (1.0-4.8); LYMPH % 21 % (24-48); MEAN CORPUSCULAR HEMOGLOBIN 25 pg (25-35); MEAN CORPUSCULAR HGB CONC 32 g/dL (31-37); MEAN CORPUSCULAR VOLUME 76 fL (79-100); MONO # 0.8 x10^3/uL (0.0-1.1); MONO % 9 % (0-9); NEUT # 5.9 x10^3/uL (1.8-7.7); NEUT % 68 % (31-73); PLATELET COUNT 198 x10^3/uL (140-400); RED BLOOD COUNT 3.55 x10^6/uL (3.50-5.40); RED CELL DISTRIBUTION WIDTH 17.3 % (11.5-14.5); WHITE BLOOD COUNT 8.7 x10^3/uL (4.0-11.0)
[2020-07-28] MEDS: IV RINGERS,LACTATED 1000ML 1,000 ML IV SCH ×2 (16:05→17:54)
[2020-07-28 16:20] VITALS: BP 119/69
[2020-07-28 16:20] LABS: CREATININE 0.5 mg/dL (0.6-1.0); GFR 152.9; POTASSIUM 4.1 mmol/L (3.5-5.1)
[2020-07-28 16:30] LABS: ALBUMIN 2.7 g/dL (3.4-5.0); ALBUMIN/GLOBULIN RATIO 0.6 (1.0-1.7); TOTAL BILIRUBIN 0.1 mg/dL (0.2-1.0); TOTAL PROTEIN 6.9 g/dL (6.4-8.2)
[2020-07-28] MEDS ORDERED: DINOPROSTONE 10 MG SUPP.VAG VG ONE (16:45)
[2020-07-28] MEDS ORDERED: diphenhydrAMINE HCL 25 MG CAPSULE PO ONE (21:30)
[2020-07-28] MEDS ORDERED: CYCLOBENZAPRINE 10 MG TABLET. PO ONE (23:00)
[2020-07-29] MEDS ORDERED: L&D EPIDURAL SYRINGE 50 ML ONE ×2 (01:03→04:22)
[2020-07-29] MEDS ORDERED: ROPIVacaine 0.2% PF 10 ML VIAL. ONE ×3 (01:03→11:00)
[2020-07-29] MEDS ORDERED: L&D EPIDURAL 50 ML SYRINGE. ONE (02:00)
[2020-07-29] MEDS: IV RINGERS,LACTATED 1000ML 1,000 ML IV SCH ×2 (03:08→09:53)
[2020-07-29] MEDS ORDERED: OXYTOCIN PREMIX 30 UNIT/500 ML NS BAG. IV ONE (06:00)
[2020-07-29] MEDS ORDERED: IV RINGERS,LACTATED 1000ML 1,000 ML IV SCH (07:34)
[2020-07-29] MEDS ORDERED: NALOXONE 0.4 MG/ML VIAL. IV PRN (07:45)
[2020-07-29] MEDS ORDERED: fentaNYL PF VIAL 100 MCG/2 ML VIAL EPID PRN (07:45)
[2020-07-29] MEDS ORDERED: ROPIVacaine 0.2% PF 10 ML VIAL. EPID PRN (07:45)
[2020-07-29] MEDS ORDERED: BUPIVACAINE MPF 0.25% 30 ML VIAL. EPID PRN (07:45)
[2020-07-29] MEDS: L&D EPIDURAL SYRINGE 50 ML EPID PRN ×2 (07:51→10:54)
[2020-07-29] MEDS ORDERED: diphenhydrAMINE HCL 25 MG CAPSULE PO ONE (08:15)
--- NOTE | 2020-07-29 08:55 | PDOC1 ---
OB - History Hx of Present Care: Good Care Ultrasounds: Normal mid trimester US Obstetrical Complications: Pre-eclampsia Medical Complications: None Past Family/Social History * Past Medical, Surgical, Family and Obstetric Histories reviewed from chart. Rubella: Immune RPR/VDRL: Negative GBS Status: Negative HBsAG: Negative OB - Chief Complaint & HPI Date of Admission: Date of Admission: Jul 28, 2020 at 14:54 Chief Complaint/History : 4 Para: 3 EGA: 38 Reason for admission: induction of labor (preeclampsia) Admission Nurse Assessment Rev: Yes OB - Admission Exam Physical Exam Vitals: VS - Last 72 Hours, by Label Date Time Temp Pulse Resp B/P (MAP) Pulse Ox O2 Delivery O2 Flow Rate FiO2 07/29/20 07:51 16 99 Room Air 07/28/20 16:20 98.3 94 18 119/69 (86) 98 Room Air 98.3 HEENT: Normal Heart: Regular Rate Lungs: Clear Abdomen: Gravid, Non tender, Soft Extremities: Edema Reflexes: Normal Cervical Dilatation: 2cm Effacement: 50% Station: -3 Membranes: Intact Heart Rate: Normal Accelerations: Accelerations Present Decelerations: No decelerations Contractions on Admission: None Text A: 38 wks IUP Preeclampsia P: Admit IOL cervidil, then pitocin in am. AGNES COOK Jr, MD Jul 29, 2020 08:55
--- NOTE | 2020-07-29 11:27 | PDOC ---
VAGINAL DELIVERY DATE DATE: 07/29/20 TIME: 11:26 : 4 Para: 4 EGA: 38 VAGINAL DELIVERY: VTX VACCUM ASSISTED: No PLACENTA: Spontaneous 8/9 SEX: Male WEIGHT Weight [ pending ] Nuchal Cord: No Amniotic Fluid: Clear PAIN: Epidural EPISIOTOMY: No EXTENSION: No EBL 300 ml COMPLICATIONS none CONDITION pt. stable Signs of Intrauterine Infectio: None Shoulder Dystocia: No AGNES COOK Jr, MD Jul 29, 2020 11:27
[2020-07-29] MEDS ORDERED: ZOLPIDEM 5 MG TABLET. PO PRN (11:30)
[2020-07-29] MEDS ORDERED: MMR per PROTOCOL. MC PRN (11:30)
[2020-07-29] MEDS ORDERED: TDaP (Adacel) per PROTOCOL. MC PRN (11:30)
[2020-07-29] MEDS ORDERED: MAGNESIUM HYDROXIDE 2,400 MG/30 ML ORAL.SUSP. PO PRN (11:30)
[2020-07-29] MEDS ORDERED: PHENYLEPH/MINERAL OIL/PETROLAT RECTAL OINTMENT TUBE. RC PRN (11:30)
[2020-07-29] MEDS ORDERED: BENZOCAINE 20% TOPICAL AEROSOL SPRAY 57GM CAN. TP PRN (11:30)
[2020-07-29] MEDS ORDERED: diphenhydrAMINE HCL 25 MG CAPSULE PO PRN (11:30)
[2020-07-29] MEDS ORDERED: OXYTOCIN 30 UNIT/500 ML PREMIX 500 ML IV PRN (11:30)
[2020-07-29] MEDS ORDERED: 0.9 % SODIUM CHLORIDE 10 ML DISP.SYRIN. IV PRN (11:30)
[2020-07-29] MEDS ORDERED: MAG HYDROX/ALUMINUM HYD/SIMETH 30 ML ORAL.SUSP PO PRN (11:30)
[2020-07-29] MEDS ORDERED: HYDROCORTISONE 1% TOPICAL OINTMENT 30GM TUBE. TP PRN (11:30)
[2020-07-29] MEDS ORDERED: oxyCODONE/APAP 5/325 1 TAB TABLET PO PRN (11:30)
[2020-07-29] MEDS ORDERED: SIMETHICONE 80 MG TAB.CHEW PO PRN (11:30)
[2020-07-29 14:00] VITALS: BP 107/57
[2020-07-29] MEDS: ACETAMINOPHEN 325 MG TABLET. PO PRN (14:24)
[2020-07-29 15:35] VITALS: BP 112/67
[2020-07-29 19:40] VITALS: BP 105/64
[2020-07-29] MEDS: DOCUSATE SODIUM 100 MG CAPSULE. PO PRN (19:42)
[2020-07-30 01:15] VITALS: BP 97/61
[2020-07-30] MEDS: IBUPROFEN 400 MG TABLET. PO PRN ×2 (01:17→11:12)
[2020-07-30 05:00] VITALS: BP 104/63
[2020-07-30 08:28] LABS: BASO % 1 % (0-3); EOS # 0.1 x10^3/uL (0.0-0.7); EOS % 1 % (0-3); HEMATOCRIT 27.7 % (36.0-47.0); HEMOGLOBIN 8.8 g/dL (12.0-15.5); LYMPH # 2.1 x10^3/uL (1.0-4.8); LYMPH % 26 % (24-48); MEAN CORPUSCULAR HEMOGLOBIN 24 pg (25-35); MEAN CORPUSCULAR HGB CONC 32 g/dL (31-37); MEAN CORPUSCULAR VOLUME 77 fL (79-100); MONO # 0.7 x10^3/uL (0.0-1.1); MONO % 9 % (0-9); NEUT # 5.3 x10^3/uL (1.8-7.7); NEUT % 64 % (31-73); PLATELET COUNT 169 x10^3/uL (140-400); RED BLOOD COUNT 3.59 x10^6/uL (3.50-5.40); RED CELL DISTRIBUTION WIDTH 17.3 % (11.5-14.5); WHITE BLOOD COUNT 8.3 x10^3/uL (4.0-11.0)
[2020-07-30] MEDS: DOCUSATE SODIUM 100 MG CAPSULE. PO PRN (11:11)
[2020-07-30] MEDS: FERROUS SULFATE 325 MG TABLET. PO SCH ×2 (11:12→21:44)
[2020-07-30] MEDS: MULTIVITAMIN with MINERAL TABLET. PO SCH (11:12)
[2020-07-30 11:20] VITALS: BP 131/63
--- NOTE | 2020-07-30 12:27 | PDOC ---
OB Progress Note Date of Service 07/30/20 Time of Evaluation 1225 Notes Pt. feeling well. No complaints. Lab Laboratory Tests Test 07/28/20 15:30 07/28/20 15:49 07/28/20 15:57 07/30/20 08:11 Urine Collection Type Unknown Urine Color Yellow Urine Clarity Clear Urine pH 7.0 (<5.0-8.0) Urine Specific [place] 1.015 (1.000-1.030) Urine Protein Negative mg/dL (NEG-TRACE) Urine Glucose (UA) Negative mg/dL (NEG) Urine Ketones (Stick) Negative mg/dL (NEG) Urine Blood Large (NEG) Urine Nitrite Negative (NEG) Urine Bilirubin Negative (NEG) Urine Urobilinogen Dipstick 0.2 mg/dL (0.2 mg/dL) Urine Leukocyte Esterase Moderate (NEG) Urine Random Creatinine 61.2 mg/dL (Not Establ.) Urine Random Total Protein 17.2 mg/dL (Not Establ.) Urine Protein/Creatinine Ratio 281 mg/g (0-200) White Blood Count 8.7 x10^3/uL (4.0-11.0) 8.3 x10^3/uL (4.0-11.0) Red Blood Count 3.55 x10^6/uL (3.50-5.40) 3.59 x10^6/uL (3.50-5.40) Hemoglobin 8.7 g/dL (12.0-15.5) 8.8 g/dL (12.0-15.5) Hematocrit 26.9 % (36.0-47.0) 27.7 % (36.0-47.0) Mean Corpuscular Volume 76 fL (79-100) 77 fL (79-100) Mean Corpuscular Hemoglobin 25 pg (25-35) 24 pg (25-35) Mean Corpuscular Hemoglobin Concent 32 g/dL (31-37) 32 g/dL (31-37) Red Cell Distribution Width 17.3 % (11.5-14.5) 17.3 % (11.5-14.5) Platelet Count 198 x10^3/uL (140-400) 169 x10^3/uL (140-400) Neutrophils (%) (Auto) 68 % (31-73) 64 % (31-73) Lymphocytes (%) (Auto) 21 % (24-48) 26 % (24-48) Monocytes (%) (Auto) 9 % (0-9) 9 % (0-9) Eosinophils (%) (Auto) 1 % (0-3) 1 % (0-3) Basophils (%) (Auto) 1 % (0-3) 1 % (0-3) Neutrophils # (Auto) 5.9 x10^3/uL (1.8-7.7) 5.3 x10^3/uL (1.8-7.7) Lymphocytes # (Auto) 1.9 x10^3/uL (1.0-4.8) 2.1 x10^3/uL (1.0-4.8) Monocytes # (Auto) 0.8 x10^3/uL (0.0-1.1) 0.7 x10^3/uL (0.0-1.1) Eosinophils # (Auto) 0.1 x10^3/uL (0.0-0.7) 0.1 x10^3/uL (0.0-0.7) Basophils # (Auto) 0.1 x10^3/uL (0.0-0.2) 0.0 x10^3/uL (0.0-0.2) Sodium Level 138 mmol/L (136-145) Potassium Level 4.1 mmol/L (3.5-5.1) Chloride Level 104 mmol/L (98-107) Carbon Dioxide Level 23 mmol/L (21-32) Anion Gap 11 (6-14) Blood Urea Nitrogen 10 mg/dL (7-20) Creatinine 0.5 mg/dL (0.6-1.0) Estimated GFR (Cockcroft-Gault) 152.9 BUN/Creatinine Ratio 20 (6-20) Glucose Level 90 mg/dL (70-99) Calcium Level 9.0 mg/dL (8.5-10.1) Total Bilirubin 0.1 mg/dL (0.2-1.0) Aspartate Amino Transf (AST/SGOT) 13 U/L (15-37) Alanine Aminotransferase (ALT/SGPT) 12 U/L (14-59) Alkaline Phosphatase 118 U/L (46-116) Total Protein 6.9 g/dL (6.4-8.2) Albumin 2.7 g/dL (3.4-5.0) Albumin/Globulin Ratio 0.6 (1.0-1.7) Treponema pallidum Antibody Nonreactive (Nonreactive) Coronavirus (PCR) Not detected (Not Detected) SARS-CoV-2 Antigen (Rapid) Negative (NEGATIVE) Laboratory Tests Test 07/30/20 08:11 White Blood Count 8.3 x10^3/uL (4.0-11.0) Red Blood Count 3.59 x10^6/uL (3.50-5.40) Hemoglobin 8.8 g/dL (12.0-15.5) Hematocrit 27.7 % (36.0-47.0) Mean Corpuscular Volume 77 fL (79-100) Mean Corpuscular Hemoglobin 24 pg (25-35) Mean Corpuscular Hemoglobin Concent 32 g/dL (31-37) Red Cell Distribution Width 17.3 % (11.5-14.5) Platelet Count 169 x10^3/uL (140-400) Neutrophils (%) (Auto) 64 % (31-73) Lymphocytes (%) (Auto) 26 % (24-48) Monocytes (%) (Auto) 9 % (0-9) Eosinophils (%) (Auto) 1 % (0-3) Basophils (%) (Auto) 1 % (0-3) Neutrophils # (Auto) 5.3 x10^3/uL (1.8-7.7) Lymphocytes # (Auto) 2.1 x10^3/uL (1.0-4.8) Monocytes # (Auto) 0.7 x10^3/uL (0.0-1.1) Eosinophils # (Auto) 0.1 x10^3/uL (0.0-0.7) Basophils # (Auto) 0.0 x10^3/uL (0.0-0.2) Medications Current Medications Sodium Chloride (Normal Saline Flush) 3 ml QSHIFT PRN IV AFTER MEDS AND BLOOD DRAWS; Start 07/28/20 at 15:00 Ringer's Solution 1,000 ml @ 125 mls/hr Q8H IV Last administered on 07/29/20at 09:53; Start 07/28/20 at 14:56 Fentanyl Citrate (Fentanyl 2ml Vial) 50 mcg PRN Q30MIN PRN IVP Mild to moderate pain; Start 07/28/20 at 15:00 Ondansetron HCl (Zofran) 4 mg PRN Q4HRS PRN IVP NAUSEA/VOMITING; Start 07/28/20 at 15:00 Al Hydroxide/Mg Hydroxide (Mylanta Plus Xs) 30 ml PRN Q4HRS PRN PO HEARTBURN / GAS; Start 07/28/20 at 15:00; Stop 07/29/20 at 13:26; Status DC Citric Acid/ Sodium Citrate (Bicitra) 30 ml 1X PRN PRN PO DYSPEPSIA; Start 07/28/20 at 15:00; Stop 07/29/20 at 14:59; Status DC Terbutaline Sulfate (Brethine) 0.25 mg 1X PRN PRN SQ SEE COMMENTS; Start 07/28/20 at 15:00; Stop 07/29/20 at 14:59; Status DC Lidocaine HCl (Xylocaine 1% Pf 30ml Vial) 30 ml 1X PRN PRN INJ SEE COMMENTS; Start 07/28/20 at 15:00; Stop 07/30/20 at 14:59 Oxytocin/Sodium Chloride 500 ml @ 0 mls/hr CONT PRN IV SEE I/O RECORD; Start 07/28/20 at 15:00 Oxytocin/Sodium Chloride 500 ml @ 0 mls/hr CONT PRN PRN IV Post delivery bleeding; Start 07/28/20 at 15:00 Ibuprofen (Motrin) 800 mg PRN Q6HRS PRN PO PAIN; Start 07/28/20 at 15:00; Stop 07/29/20 at 13:25; Status DC Dinoprostone (Cervidil) 10 mg 1X ONCE VG Last administered on 07/28/20at 17:04; Start 07/28/20 at 16:45; Stop 07/28/20 at 16:46; Status DC Diphenhydramine HCl (Benadryl) 50 mg 1X ONCE PO Last administered on 07/28/20at 21:35; Start 07/28/20 at 21:30; Stop 07/28/20 at 21:31; Status DC Cyclobenzaprine HCl (Flexeril) 10 mg 1X ONCE PO Last administered on 0at 22:38; Start 07/28/20 at 23:00; Stop 07/28/20 at 23:01; Status DC Ropivacaine (Naropin 0.2%) 10 ml STK-MED ONCE .ROUTE ; Start 07/29/20 at 01:03; Stop 07/29/20 at 01:03; Status DC Fentanyl Citrate 50 ml @ As Directed STK-MED ONCE .ROUTE ; Start 07/29/20 at 01:03; Stop 07/29/20 at 01:03; Status DC Fentanyl Citrate 50 ml @ As Directed STK-MED ONCE .ROUTE ; Start 07/29/20 at 04:22; Stop 07/29/20 at 04:22; Status DC Ringer's Solution 1,000 ml @ 1,000 mls/hr Q1H IV ; Start 07/29/20 at 07:34; S top 07/29/20 at 08:33; Status DC Naloxone HCl (Narcan) 0.04 mg PRN Q1MIN PRN IV SEE COMMENTS; Start 07/29/20 at 07:45 Fentanyl Citrate (Fentanyl 2ml Vial) 100 mcg PRN 1X PRN EPID FOR ANESTHESIA; Start 07/29/20 at 07:45; Stop 07/30/20 at 07:44; Status DC Bupivacaine HCl (Sensorcaine Mpf 0.25%) 10 ml PRN 1X PRN EPID FOR ANESTHESIA; Start 07/29/20 at 07:45; Stop 07/30/20 at 07:44; Status DC Fentanyl Citrate 50 ml @ 14 mls/hr CONT PRN EPID PAIN Last administered on 07/29/20at 10:54; Start 07/29/20 at 07:45 Ropivacaine (Naropin 0.2%) 20 ml 1X PRN PRN EPID PER ANESTHESIA; Start 07/29/20 at 07:45; Stop 07/30/20 at 07:44; Status DC Diphenhydramine HCl (Benadryl) 50 mg 1X ONCE PO Last administered on 07/29/20at 08:20; Start 07/29/20 at 08:15; Stop 07/29/20 at 08:16; Status DC Fentanyl Citrate (Crbxejpv-Zfzdb-GL 3 Mcg-0.1%) 100 ml STK-MED ONCE .ROUTE ; Start 07/29/20 at 02:00; Stop 07/29/20 at 08:37; Status DC Ropivacaine (Naropin 0.2%) 10 ml STK-MED ONCE .ROUTE ; Start 07/29/20 at 02:00; Stop 07/29/20 at 08:37; Status DC Sodium Chloride (Normal Saline Flush) 10 ml QSHIFT PRN IV AFTER MEDS AND BLOOD DRAWS; Start 07/29/20 at 11:30 Oxytocin/Sodium Chloride 500 ml @ 62.5 mls/hr CONT PRN IV SEE I/O RECORD; Start 07/29/20 at 11:30; Stop 07/29/20 at 19:29; Status DC Acetaminophen (Tylenol) 650 mg PRN Q6HRS PRN PO MILD PAIN / TEMP > 100.3'F Last administered on 07/29/20at 14:24; Start 07/29/20 at 11:30 Ibuprofen (Motrin) 800 mg PRN Q8HRS PRN PO INFLAMMATION/PAIN PREVENTION Last administered on 07/30/20at 11:12; Start 07/29/20 at 11:30 Docusate Sodium (Colace) 100 mg PRN BID PRN PO HARD STOOL Last administered on 07/30/20at 11:11; Start 07/29/20 at 11:30 Magnesium Hydroxide (Milk Of Magnesia) 2,400 mg PRN DAILY PRN PO CONSTIPATION; Start 07/29/20 at 11:30 Al Hydroxide/Mg Hydroxide (Mylanta Plus Xs) 30 ml PRN Q4HRS PRN PO HEARTBURN / GAS; Start 07/29/20 at 11:30 Simethicone (Gas-X) 80 mg PRN AFTMEALHC PRN PO GAS / BLOATING; Start 07/29/20 at 11:30 Diphenhydramine HCl (Benadryl) 25 mg PRN Q6HRS PRN PO ITCHING; Start 07/29/20 at 11:30 Benzocaine (Americaine) 1 spray PRN QID PRN TP TOPICAL PAIN; Start 07/29/20 at 11:30 Phenyleph/Shark Oil/Min Oil/Petrol (Preparation H) 1 yancy PRN QID PRN RC RECTAL PAIN; Start 07/29/20 at 11:30 Hydrocortisone (Cortaid) 1 yancy PRN QID PRN TP PERINEAL PAIN; Start 07/29/20 at 11:30 Ferrous Sulfate (Feosol) 325 mg BIDWMEALS PO Last administered on 07/30/20at 11:12; Start 07/30/20 at 08:00 Zolpidem Tartrate (Ambien) 5 mg PRN QHS PRN PO INSOMNIA, MAY REPEAT X1; Start 07/29/20 at 11:30 Info (Do NOT chart on this placeholder) 1 ea 1X PRN PRN MC SEE COMMENTS; Start 07/29/20 at 11:30 Info (Do NOT chart on this placeholder) 1 ea 1X PRN PRN MC SEE COMMENTS; Start 07/29/20 at 11:30 Oxycodone/ Acetaminophen (Percocet 5/325) 2 tab PRN Q4HRS PRN PO MODERATE PAIN, SEVERE PAIN Last administered on 07/29/20at 19:42; Start 07/29/20 at 11:30 Multivitamins (Thera M Plus) 1 tab DAILY PO Last administered on 07/30/20at 11:12; Start 07/30/20 at 09:00 Oxytocin/Sodium Chloride (Oxytocin Premix Infusion) 30 unit STK-MED ONCE IV ; Start 07/29/20 at 06:00; Stop 07/29/20 at 13:26; Status DC Ropivacaine (Naropin 0.2%) 10 ml STK-MED ONCE .ROUTE ; Start 07/29/20 at 11:00; Stop 07/30/20 at 08:58; Status DC Active Scripts Active Acyclovir 800 Mg Tablet 1 Tab PO 5XDAY Cephalexin 500 Mg Tablet 1 Tab PO BID Tamiflu (Oseltamivir Phosphate) 75 Mg Capsule 1 Cap PO BID 5 Days Keflex (Cephalexin) 500 Mg Capsule 1 Cap PO BID Flagyl (Metronidazole) 500 Mg Tablet 1 Tab PO BID Macrobid 100 Mg Capsule (Nitrofurantoin Monohyd/M-Cryst) 100 Mg Capsule 1 Cap PO BID Diflucan (Fluconazole) 150 Mg Tablet 1 Tab PO ONCE Take 1 tablet today and may repeat in 7 days Macrobid 100 Mg Capsule (Nitrofurantoin Monohyd/M-Cryst) 100 Mg Capsule 1 Cap PO BID Flagyl (Metronidazole) 500 Mg Tablet 1 Tab PO BID Doxycycline Hyclate 100 Mg Capsule 1 Cap PO BID Prednisone 20 Mg Tablet 40 Mg PO DAILY 5 Days Proair Hfa Inhaler (Albuterol Sulfate) 8.5 Gm Hfa.aer.ad 1 Puff INH Q4HRS PRN Bactrim Ds Tablet (Sulfamethoxazole/Trimethoprim) 1 Each Tablet 1 Tab PO BID 7 Days Macrobid 100 Mg Capsule (Nitrofurantoin Monohyd/M-Cryst) 100 Mg Capsule 1 Cap PO BID Flagyl (Metronidazole) 500 Mg Tablet 1 Tab PO BID Exam Abd: soft, non tender, fundus firm Assessment PPD#1 s/p Plan of Care: Continue current Tx, Mgmt AGNES COOK Jr, MD Jul 30, 2020 12:27
[2020-07-30] MEDS: ACETAMINOPHEN 325 MG TABLET. PO PRN (15:57)
[2020-07-30 18:00] VITALS: BP 116/76
[2020-07-30 23:27] VITALS: BP 127/80
[2020-07-31 04:22] VITALS: BP 118/78
[2020-07-31 08:50] VITALS: BP 120/66
[2020-07-31] MEDS: IBUPROFEN 400 MG TABLET. PO PRN (09:00)
[2020-07-31] MEDS: FERROUS SULFATE 325 MG TABLET. PO SCH (09:00)
[2020-07-31] MEDS: DOCUSATE SODIUM 100 MG CAPSULE. PO PRN (09:00)
[2020-07-31] MEDS: MULTIVITAMIN with MINERAL TABLET. PO SCH (09:00)
--- NOTE | 2020-07-31 12:20 | PDOC3 ---
OB DISCHARGE SUMMARY DATE OF ADMISSION: 07/29/20 DATE OF DISCHARGE: 07/31/20 REASON FOR ADMISSION: Onset of labor INTRAPARTUM PROCEDURES: Spontanous Vag Deliv DISCHARGE DIAGNOSIS: Term Delivered DISCHARGE INFORMATION: Activity (ad ariane), Diet (regular), Instructions (pelvic rest x 6 wks) HOSPITAL COURSE Term gestation delivered vaginally without complications. AGNES COOK Jr, MD Jul 31, 2020 12:20
[2020-07-31] MEDS ORDERED: IBUP-1027 PO (12:22)
--- NOTE | 2020-07-31 12:22 | DISCH ---
DISCHARGE INSTRUCTIONS Condition on Discharge Condition on Discharge: Stable Activity After Discharge Activity Instructions for Disc: Activity as tolerated Lifting Instructions after Dis: No heavy lifting Driving Instructions after Dis: Do not drive today Diet after Discharge Diet after Discharge: Regular Contacting the [facility] after DC Call your doctor for: Concerns you may have Follow-Up Follow up with: Dr. Ratliff in 6 wks AGNES RATLIFF Jr, MD Jul 31, 2020 12:22
[2020-07-31 13:00] VITALS: BP 122/77
== END 2020-07-31 13:15 | disposition home or self-care (01) | DRG 807 ==
LOC: 3 SO LND 14:54 → 3 NORTH 07-29 14:00
PROVIDERS: ADMIT Obstetrics & Gynecology; ATTEND Obstetrics & Gynecology
PROC: 10E0XZZ Delivery of Products of Conception, External Approach (ICD-10-PCS; principal; 2020-07-29)
PROC: 3E0R3BZ Introduction of Anesthetic Agent into Spinal Canal, Percutaneous Approach (ICD-10-PCS; 2020-07-29)
PROC: 00HU33Z Insertion of Infusion Device into Spinal Canal, Percutaneous Approach (ICD-10-PCS; 2020-07-29)
PROC: 3E0234Z Introduction of Serum, Toxoid and Vaccine into Muscle, Percutaneous Approach (ICD-10-PCS; 2020-07-29)
PROC: 3E0P7VZ Introduction of Hormone into Female Reproductive, Via Natural or Artificial Opening (ICD-10-PCS; 2020-07-29)
DX: O14.94 Unspecified pre-eclampsia, complicating childbirth (principal); Z37.0 Single live birth; Z3A.38 38 weeks gestation of pregnancy; Z20.828 Contact with and (suspected) exposure to other viral communicable diseases; O26.893 Other specified pregnancy related conditions, third trimester; Z67.41 Type O blood, Rh negative; Z91.040 Latex allergy status; Z91.048 Other nonmedicinal substance allergy status
CPT/HCPCS: 36415; 80053; 81003; 82570; 84156; 85025; 85461; 86592; 86850; 86900; 86901; 87426; J2590; J2791; J2795; J3010; J7120; G0378; Q0163; U0003-CS

== ENCOUNTER 2021-03-12 21:04 | Emergency (ER) | payer OTHER ==
[~2021-03-12] VITALS: Ht 160 cm; Wt 97.3 kg
[~2021-03-12 21:04] MED LIST changes: -ACYC800T PO; +ACYC800T88 PO; +IBUP-1027 PO
[2021-03-12 23:10] VITALS: BP 138/89
[2021-03-12] MEDS ORDERED: DEXAMETHASONE SOD PHOS 20 MG/5 ML VIAL. PO ONE (23:15)
--- NOTE | 2021-03-12 23:16 | ED.ADGEN ---
Past Medical History Past Medical History: Other Additional Past Medical Histor: ADHD Past Surgical History: Tonsillectomy Smoking Status: Never Smoker Alcohol Use: None Drug Use: Cocaine, Marijuana, Methamphetamine General Adult EDM: Chief Complaint: SORE THROAT HPI: HPI: Patient is a 25 year old female who presents emergency department with complaints of nasal congestion, sore throat, nausea, and dry cough for the last 2 days. Patient states she is also had frequent sneezing. She denies any vomiting, diarrhea, abdominal pain, chest pain, shortness of breath, body aches, fever, fatigue, loss of taste/smell, rash, or headache. Patient states she has been taking Xyzal for relief of her seasonal allergy symptoms. She denies any known exposure to strep pharyngitis or COVID-19. Patient states she has received her first injection of the Pfizer vaccination. She currently rates her pain 5 out of 10 on the pain scale, she describes it as a sharp burning sensation in her throat. She denies any alleviating factors. Review of Systems: Review of Systems: Complete ROS is negative unless otherwise noted in HPI. Allergies: Allergies: Allergies Coded Allergies Type Severity Reaction Last Updated Verified Latex, Natural Rubber Allergy Intermediate hives 07/28/20 Yes Physical Exam: PE: See Above Constitutional: Well developed, well nourished, no acute distress, obese HENT: Normocephalic, atraumatic, bilateral external ears normal, bilateral TMs normal, posterior pharynx normal, oropharynx moist, nose congested with erythema and edema of the nasal turbinates bilaterally Eyes: PERRLA, conjunctiva injected bilaterally, no discharge. [] Neck: Normal range of motion, supple, nontender, no stridor. [] Cardiovascular:Heart rate regular rhythm, no murmur [] Lungs & Thorax: Bilateral breath sounds clear to auscultation, Respirations even and unlabored, no retractions, no respiratory distress Skin: Warm, dry, no erythema, no rash. [] Back: No tenderness Extremities: No cyanosis, ROM intact Neurologic: Alert and oriented X 3, no focal deficits noted. [] Psychologic: Affect normal, judgement normal, mood normal. EKG: EKG: [] Heart Score: C/O Chest Pain: No Radiology/Procedures: Radiology/Procedures: Rapid strep is negative. [] Course & Med Decision Making: Course & Med Decision Making Pertinent Labs and Imaging studies reviewed. (See chart for details) [] Zev Disclaimer: Zev Disclaimer: This electronic medical record was generated, in whole or in part, using a voice recognition dictation system. Departure Departure Impression: Primary Impression: Allergic rhinitis Additional Impression: Pharyngitis, acute Disposition: 01 HOME / SELF CARE / HOMELESS Condition: STABLE Referrals: NO PCP (PCP) Patient Instructions: Allergic Rhinitis, Viral and Bacterial Pharyngitis, [id number] Additional Instructions: Fill the prescription(s) and use as directed. Continue taking your Xyzal daily, I recommend you also take Flonase (fluticasone) nasal spray 2 sprays each nostril once daily in the morning. You may take Tylenol or ibuprofen as needed for pain/fever. Increase clear fluids. Gargle with warm salt water as needed for comfort. Avoid triggers such as smoke, fragrance, dust, and pollen. You may take OTC cough suppressants as needed. Follow-up with your primary care doctor if symptoms persist, return to the ER if symptoms worsen. [facility] [address] [place] [address] [facility] [address] [place] [address] [facility] [address] [facility] [place] [address] [facility] [address] [place] [address] [facility] [address] [place] [address] [facility] [address] [place] [address] [facility] [address] [place] [address] [facility] [address] [place] [address] [facility] [address] [place] [address] [facility] [address] [place] [address] Problem Qualifiers Primary Impression: Allergic rhinitis Allergic rhinitis trigger: unspecified Allergic rhinitis seasonality: unspecified Qualified Codes: J30.9 - Allergic rhinitis, unspecified Additional Impression: Pharyngitis, acute Pharyngitis/tonsillitis etiology: unspecified etiology Qualified Codes: J02.9 - Acute pharyngitis, unspecified MIRYAM GARRISON [employer] March 12, 2021 23:16
== END 2021-03-12 23:25 ==
LOC: ER 21:04
DX: J30.9 Allergic rhinitis, unspecified (principal); J02.9 Acute pharyngitis, unspecified; F90.9 Attention-deficit hyperactivity disorder, unspecified type; Z91.040 Latex allergy status
CPT/HCPCS: 87070; 87880; 99283